=== PATIENT | male | born 1955 | race Caucasian/White ===

== ENCOUNTER 2022-06-22 06:40 | Day surgery (SDC) | payer OTHER ==
[~2022-06-22] VITALS: Ht 180.3 cm; Wt 81.6 kg
[2022-06-22] MEDS ORDERED: DEXAMETHASONE SOD PHOSPHATE 4 MG/ML VIAL ONE (10:50)
[2022-06-22] MEDS ORDERED: ONDANSETRON HCL 4 MG/2 ML VIAL ONE (10:50)
[2022-06-22] MEDS ORDERED: METOCLOPRAMIDE HCL 10 MG/2 ML VIAL ONE (10:50)
[2022-06-22] MEDS ORDERED: ePHEDrine sulfate 50 MG/ML VIAL ONE (10:50)
[2022-06-22] MEDS ORDERED: fentaNYL CITRATE/PF 100 MCG/2 ML AMP ONE (10:50)
[2022-06-22] MEDS ORDERED: LIDOCAINE/EPI 1% 1:100000 20 ML VIAL ONE (10:50)
[2022-06-22] MEDS ORDERED: LR 1,000 ML IV.SOLN IV ONE (10:50)
[2022-06-22] MEDS ORDERED: ROCURONIUM BROMIDE 10 MG/ML (ZEMURON) ONE (10:50)
[2022-06-22] MEDS ORDERED: SEVOFLURANE 15 MIN GAS INH ONE (10:50)
[2022-06-22] MEDS ORDERED: SUGAMMADEX SODIUM 200 MG/2 ML VIAL IV ONE (10:50)
[2022-06-22] MEDS ORDERED: NS IRRIG SOLN 1000 ML IR ONE (10:50)
[2022-06-22] MEDS ORDERED: MIDAZOLAM HCL 5 MG/5 ML VIAL ONE (10:50)
[2022-06-22] MEDS ORDERED: KETOROLAC TROMETHAMINE 30 MG VIAL ONE (10:50)
[2022-06-22] MEDS ORDERED: OXYMETAZOLINE HCL 0.05% NASAL SPRAY NS ONE (10:50)
[2022-06-22] MEDS ORDERED: KETOROLAC TROMETHAMINE 30 MG VIAL IVP PRN (13:15)
[2022-06-22] MEDS ORDERED: ONDANSETRON HCL 4 MG/2 ML VIAL IVP PRN ×2 (13:15→14:00)
[2022-06-22] MEDS ORDERED: MEPERIDINE HCL/PF 25 MG/ML DISP.SYRIN IVP PRN (13:15)
[2022-06-22] MEDS ORDERED: HYDROmorphone 1 MG/ML INJ. CARTRIDGE IVP PRN (13:15)
[2022-06-22] MEDS ORDERED: LR 1,000 ML IV SCH (13:15)
[2022-06-22] MEDS ORDERED: HYDROcodone/ACETAMIN 5-325 MG TAB (NORCO/ VICODIN) PO PRN (14:00)
[2022-06-22] MEDS ORDERED: ONDANSETRON 4 MG ODT TAB PO PRN (14:00)
[2022-06-22 16:25] VITALS: BP_SYST 124
== END 2022-06-22 15:40 | disposition home or self-care (01) ==
LOC: SDS 06:40 → SMU 06:44 → SDS 15:40
PROVIDERS: ATTEND Otolaryngology
DX: J32.4 Chronic pansinusitis (principal); J33.0 Polyp of nasal cavity; Z20.822 Contact with and (suspected) exposure to COVID-19; Z79.899 Other long term (current) drug therapy
CPT/HCPCS: 87081; 31296; 31267; 31259; 36415; 88304; 87426; J3490; J1100; J1885; J2765; J2250; J2405; J3010; J7120; C1726; 88305